=== PATIENT | female | born 1995 | race Caucasian/White ===

== ENCOUNTER 2022-10-07 07:29 | Emergency (ER) | payer MEDICAID, SELFPAY ==
[2022-10-07 07:31] VITALS: BP 145/88; PULSE 90; RESP 18; TEMP 36.7; O2SAT 100; BMI 30.7
--- NOTE | 2022-10-07 08:19 | US_ITS ---
STUDY: ABDOMINAL ULTRASOUND - RIGHT UPPER QUADRANT REASON FOR VISIT: Female, 27 years old . Right upper quadrant pain. TECHNIQUE: Ultrasound evaluation of the right upper quadrant was performed with real-time and static pulido-scale imaging. TECHNICAL QUALITY: Adequate. COMPARISON: None. FINDINGS: Liver: The liver is enlarged and measures 20.1 cm. There is increased echogenicity consistent with fatty infiltration. The bile ducts are within normal limits. There is hepatic color flow. The direction of portal flow is hepatopetal. There is a 2.6 cm x 1.1 cm x 2 cm echogenic nodule in the left lobe of the liver suggestive of hemangioma. Gallbladder: Normal distended gallbladder. The gallbladder wall measures 2.0 mm. There is a negative sonographic Carpenter''s sign. There is no pericholecystic fluid. There are multiple echogenic structures within the gallbladder, consistent with multiple gallstones. Common Bile Duct (C.B.D.): The common bile duct measures 2.7 mm. Pancreas: There is nonvisualization of the pancreas due to overlying bowel gas. There is normal echogenicity of the pancreas. There is no demonstrated pancreatic mass or cyst. Right Kidney: Normal size of the right kidney. The right kidney measures 10.6 cm x 5.2 cm x 5.3 cm. Normal renal cortex. The right cortex measures 1.8 cm. There is no demonstrated renal mass or cyst. There is no right hydronephrosis. US/Gallbladder IMPRESSION: Hepatomegaly and fatty infiltration of the liver. Multiple gallstones. 2.6 x 1.1 cm x 2 cm echogenic nodule in the left lobe of the liver suggestive of a hemangioma. Electronically Signed: Shabbir Camacho MD at 10:36 EST ,
--- NOTE | 2022-10-07 08:20 | ED.VIS.GI ---
HPI HPI - GI History of Present Illness Chief Complaint: Abd Pain Informant: patient Abdominal Pain/Flank Pain Onset: Yesterday Context: Gradual Onset (after eating steak for dinner) Timing: Continuous and Waxes and wanes Quality: Aching Location: - (upper abd, radiating into back) Current Severity: Severe Maximum Severity: Severe Worsened by: Nothing Relieved by: Nothing Nausea/Vomiting/Emesis GI Symptom: Positive for Nausea; Negative for Vomiting Diarrhea/Melena/Hematochezia GI Symptom: Negative for Diarrhea, Melena or Hematochezia Associated Symptoms Associated Symptoms: Negative for Dysuria, Frequency or Hematuria Narrative Narrative: Patient states she ate steak last night and subsequently started having upper abdominal pain that has been relentless and present all night, presenting around 8 AM. Some nausea no vomiting. Feels similar to prior attacks that have been diagnosed as gallbladder attacks. She had testing done at outside hospital in the [facility] area, she states she followed up with a surgeon but they told her that I did not need my gallbladder out. When I asked the patient about diet restrictions, she states she was advised to eat less of a few different things but no major diet restrictions. No prior history of abdominal surgeries. No fevers or chills or confusion or jaundice. PFSH PFSH Medical History no medical history Home Medications NK 10/07/22 [History Last Taken Unknown] Allergy/AdvReac Type Severity Reaction Status Date / Time No Known Allergies Allergy Verified 10/07/22 07:33 Social History Smoking Status: Never smoker ROS ROS ED Constitutional Constitutional ED: Denies chills or fever(s) Eyes Eyes: Denies change in vision or diplopia ENT ENT ED: Denies rhinorrhea or sore throat Cardiovascular Cardiovascular: Denies chest pain or palpitations Respiratory/Chest Respiratory/Chest: Denies cough or dyspnea Gastrointestinal Gastrointestinal: Reports abdominal pain and nausea; Denies diarrhea or vomiting Genitourinary Genitourinary ED: Denies dysuria or hematuria Musculoskeletal Musculoskeletal: Reports back pain; Denies neck pain Integumentary Denies abscess or rash Neurologic Neurologic: Denies headache(s), paresthesias or weakness Psychiatric Psychiatric: Denies anxiety or suicidal thoughts EXAM Physical Exam Const Vital Signs: 10/07/22 07:31 10/07/22 11:23 Temperature 98.0 F Temperature Source Temporal Pulse Rate 90 Respiratory Rate 18 16 Blood Pressure 145/88 H Blood Pressure Mean 107 Pulse Ox 100 Oxygen Delivery Method Room Air Positive well nourished, well developed and obese Constitutional Narrative: Uncomfortable, in pain General Appearance ED: well developed and NAD Nutritional Appearance: obese HEENT Reports moist mucous membranes normocephalic and atraumatic Eyes PERRL and EOMs intact bilaterally General Eye ED: Negative for scleral icterus Neck full ROM and supple Resp normal respiratory effort and clear to auscultation bilaterally Cardio regular rate, regular rhythm and no murmurs GI non-distended GI Narrative: Tender voluntary guarding throughout the upper abdomen. Lower abdomen benign. Auscultation: normoactive bowel sounds Palpation: soft Back/Spine no CVA tenderness General Back: other FROM Extremity normal to inspection General Extremety ED: Negative for edema, pulses abnormal or tenderness General Extremity: Negative for edema or pulses abnormal Neuro oriented x3, CN's II-XII intact bilaterally and no sensory deficits noted Sensorium / Orientation: awake and alert Motor Exam: strength 5/5 throughout Skin no rashes or lesions noted and no wounds General Skin Exam: Negative for jaundice MDM MDM MDM Narrative Medical decision making narrative: Patient presenting with severe biliary colic, work-up obtained in order for evaluate for the possibility of acute cholecystitis and/or choledocholithiasis/biliary obstruction. Work-up is negative for that. I discussed with surgery Dr. Paulino, specifically regarding very slight AST and ALT elevations in context of this although there are no radiographic signs of acute cholecystitis on the ultrasound; I reviewed those images and I agree with the radiologist's interpretation. Given that the patient is doing much better after treatment, she still has some mild pain but has a negative Carpenter's clinically, he recommends outpatient follow-up, I am recommending to her that she stick with a fat-free diet is much as possible which includes avoiding all animal meats, cheese, we discussed all of this in addition to reasons to return. Lab Data Attestation: I reviewed the patient's lab results. Labs: Laboratory Results - last 24 hr 10/07/22 10/07/22 10/07/22 08:26 08:26 09:50 WBC 10.7 RBC 4.79 Hgb 14.9 Hct 43.8 MCV 91.4 MCH 31.1 MCHC 34.0 RDW Std Deviation 41.3 RDW Coeff of Lucita 12.3 Plt Count 323 MPV 8.6 Immature Gran % (Auto) 0.400 Neut % (Auto) 76.1 H Lymph % (Auto) 18.5 L [place] % (Auto) 3.9 Eos % (Auto) 0.6 Baso % (Auto) 0.5 Absolute Neuts (auto) 8.1 H Absolute Lymphs (auto) 1.97 Nucleated RBC % 0 Sodium 142 Potassium 3.7 Chloride 106 Carbon Dioxide 24.0 Anion Gap 12 BUN 13 Creatinine 0.82 Estim Creat Clear Calc 94.77 Est GFR (MDRD) Af Amer 106 Est GFR (MDRD) Non-Af 87 BUN/Creatinine Ratio 15.9 Glucose 151 H Calcium 9.3 Total Bilirubin 0.50 AST 39 H ALT 62 H Alkaline Phosphatase 52 Total Protein 7.4 Albumin 3.6 Globulin 3.8 Albumin/Globulin Ratio 0.9 Lipase 193 Urine Color Yellow Urine Clarity Sl. Cloudy Urine pH 6.0 Ur Specific [place] 1.015 Urine Protein 15 H Urine Glucose (UA) Normal Urine Ketones 15 H Urine Occult Blood Negative Urine Nitrite Negative Urine Bilirubin Negative Urine Urobilinogen Normal Ur Leukocyte Esterase Negative Urine RBC 0 SEEN Urine WBC 0 SEEN Ur Squamous Epith Cells 0-5 SEEN Urine Bacteria 1+ Urine Mucus 0 SEEN Urine Test Negative Radiography Diagnostic Testing: Clinical Impression(s) from Imaging Studies Gallbladder Ultrasound 10/07/22 08:19 IMPRESSION: Hepatomegaly and fatty infiltration of the liver. Multiple gallstones. 2.6 x 1.1 cm x 2 cm echogenic nodule in the left lobe of the liver suggestive of a hemangioma. Electronically Signed: Shabbir Camacho MD at 10:36 EST , Discharge Plan Triage Chief Complaint: Abd Pain ED Provider: Yrn Weinstein Dx/Rx/DC Orders Clinical Impression: Colic, biliary, Cholelithiasis Instructions: ED Diet, Low Fat, ED Gallstones with Biliary Colic Prescriptions: No Action NK Primary Care Provider: Alejo Pritchett Referrals: Jair Paulino MD [Med Staff - Active Staff] - As soon as possible [facility],Out of [Non-Staff] - Disposition Disposition: Home, Self Care
[2022-10-07] MEDS: Ketorolac 30 MG/ML Syringe IV (08:33)
[2022-10-07] MEDS: Morphine 4 MG/ML Syringe IV (08:33)
[2022-10-07] MEDS: Ondansetron 4 MG/2 ML Vial IV (08:33)
[2022-10-07] MEDS: 0.9% Normal Saline 1,000 ML 125 ML IV (08:34)
[2022-10-07 08:44] LABS: Absolute Lymphocyte Count 1.97 X10^3/uL (0.83-4.51); Absolute Neutrophil Count 8.1 X10^3/uL (2.0-7.7); Basophil# 0.05 X10^3/uL; Basophil% 0.5 % (0-1); Eosinophil# 0.06 X10^3/uL; Eosinophils% 0.6 % (0-5); Hematocrit 43.8 % (37-47); Hemoglobin 14.9 g/dL (12.0-15.0); Lymphocyte # 1.97 X10^3/ul (0.83-4.51); Lymphocyte % 18.5 % (19-41); Mean Corpuscular Hgb 31.1 pg (27.0-32.0); Mean Corpuscular Volume 91.4 fL (81-99); Mean Platelet Vol. 8.6 fl (6.2-12.0); Monocyte# 0.42 X10^3/uL; Monocyte% 3.9 % (0-10); NRBC Flagged by Analyzer 0 % (0-5); Neutrophil # 8.13 X10^3/uL (2.7-7.7); Neutrophil % 76.1 % (47-70); Platelet Count 323 K/mm3 (150-450); RBC Distribution Width CV 12.3 % (11.6-14.6); RBC Distribution Width SD 41.3 fl (35.1-43.9); Red Blood Count 4.79 M/mm3 (4.2-5.4); White Blood Count 10.7 K/mm3 (4.4-11.0)
[2022-10-07 09:02] LABS: ALB/GLOB Ratio 0.9 RATIO (0.9-2.4); AST(SGOT) 39 U/L (15-37); Alanine Aminotransfer ALT/SGPT 62 U/L (13-56); Albumin, Serum 3.6 g/dL (3.2-5.0); Alkaline Phosphatase 52 U/L (45-117); Anion Gap 12 (5-15); BUN 13 mg/dL (7-18); BUN/Creat Ratio 15.9 RATIO (10-20); Calcium,Total 9.3 mg/dL (8.5-10.1); Chloride 106 mmol/L (98-107); Creatinine, Serum 0.82 mg/dL (0.55-1.02); EST Glomerular Filtration Rate 87 mL/min (>60); Est Glom Filt Rate - Afr Amer 106 mL/min (>60); Estimated Creatinine Clearance 94.77 ml/min; Globulin 3.8 g/dL (2.2-4.2); Glucose 151 mg/dL (74-106); Lipase 193 U/L (73-393); Potassium 3.7 mmol/L (3.5-5.1); Protein, Total 7.4 g/dL (6.4-8.2); Sodium Level 142 mmol/L (136-145)
[2022-10-07 10:07] LABS: Mucous, Urine 0 SEEN /hpf (<or=2+); Red Blood Cells-Urine 0 SEEN /hpf (0-5); White Blood Cells 0 SEEN /hpf (0-5)
[2022-10-07 10:33] LABS: Color, Urine Yellow (Yellow); Glucose, Dipstick Normal (Normal); Ketone-Dipstick 15 mg/dl (Negative); Leukocyte Esterase-Dipstick Negative /ul (Negative); Nitrite-Dipstick Negative (Negative); Occult Blood-Urine Negative /ul (Negative); Protein-Dipstick 15 mg/dl (Negative); Specific Gravity, Urine 1.015 (1.002-1.030); Urine Bilirubin Dipstick Negative (Negative); Urine Clarity Sl. Cloudy (Clear); Urine Urobilinogen Normal (Normal)
[2022-10-07 10:41] LABS: Bacteria 1+ /hpf (None Seen); Squamous Epithelial Cells - UA 0-5 SEEN /hpf (5-10)
[2022-10-07 10:42] LABS: Internal QC Validated? YES +Cl - CLEAR BKGD; Pregnancy, Urine Negative Negative
[2022-10-07 11:23] VITALS: RESP 16
== END 2022-10-07 12:43 | disposition home or self-care (01) ==
PROVIDERS: Emergency Provider Emergency Medicine; PCP Family Medicine; Visit Provider Emergency Medicine
DX: K80.70 Calculus of gallbladder and bile duct without cholecystitis without obstruction (principal); E66.9 Obesity, unspecified
CPT/HCPCS: 76705; 80053; 81001; 81025; 83690; 85025; 96361; 96374; 96375; 99283; J7030; A4216; J2405